=== PATIENT | female | born 1945 | race American Indian/Alaskan Native ===

== ENCOUNTER 2020-01-15 11:17 | Emergency (ER) | payer MEDICARE, OTHER ==
[~2020-01-15] VITALS: Ht 165.1 cm; Wt 77.1 kg
[~2020-01-15 11:17] MED LIST: AMLODIPINE BESY10 MG PO; CLONIDINE HCL0.1 MG PO; HYDROCHLOROTHIA25 MG PO; METOPROLOL SUC200 MG PO; MICARDIS80 MG; MICARDIS80 MG PO; OMEGA 3 1,0001 EACH PO; VITAMIN D5000 UNIT PO; ZOLPIDEM TARTRA10 MG PO
[2020-01-15] MEDS ORDERED: AVAPRO150 MG PO (11:40)
--- NOTE | 2020-01-15 20:13 | EKG ---
[facility] [address] [facility] [place], [place] [address] Signed Sinus bradycardia Otherwise normal ECG No previous ECGs available Confirmed by ARSALAN BRO MD ([id number] on 01/15/2020 8:12:55 PM Electronically Signed By: ARSALAN BRO MD 01/15/202012 PATIENT NAME: MARIO SUAREZ Electrocardiogram DATE OF : 47 PHYSICIAN: ARSALAN BRO MD REPORT #: [id number] REPORT IS CONFIDENTIAL AND NOT TO BE RELEASED WITHOUT AUTHORIZATION
== END 2020-01-15 13:30 | disposition home or self-care (01) ==
LOC: ED 11:17
DX: S00.93XA Contusion of unspecified part of head, initial encounter (principal); I10 Essential (primary) hypertension; Z88.1 Allergy status to other antibiotic agents; Z91.09 Other allergy status, other than to drugs and biological substances; Z88.8 Allergy status to other drugs, medicaments and biological substances; Z79.899 Other long term (current) drug therapy; W19.XXXA Unspecified fall, initial encounter
CPT/HCPCS: 70450; 80048; 81001; 84484; 85025; 93005; 93010; 99284-25